=== PATIENT | male | born 1975 | race Caucasian/White ===

== ENCOUNTER 2018-08-01 15:07 | Inpatient (IN) | payer OTHER ==
[~2018-08-01] VITALS: Ht 180.3 cm; Wt 86.6 kg
[2018-08-01] MEDS ORDERED: SOD CHLORIDE 0.9% 1,000 ML IV STA (17:36)
[2018-08-01] MEDS ORDERED: NITROGLYCERIN 2% 1 GM OINT PKT TD STA (17:36)
[2018-08-01] MEDS ORDERED: NITROGLYCERIN (SL) 0.4 MG TAB SL PRN ×2 (18:00→19:30)
[2018-08-01] MEDS ORDERED: IOHEXOL 100 ML ONE (19:05)
[2018-08-01] MEDS ORDERED: SOD CHLORIDE 0.9% 100 ML ONE (19:05)
[2018-08-01] MEDS ORDERED: SOD CHLORIDE 0.45% 1,000 ML IV SCH (19:23)
[2018-08-01] MEDS ORDERED: ACETAMINOPHEN 325 MG TAB PO PRN ×2 (19:30)
[2018-08-01] MEDS ORDERED: morphine 4 MG/ML VIAL IV PRN (19:30)
[2018-08-01] MEDS ORDERED: hydrALAzine 20 MG INJ IV PRN (19:30)
[2018-08-01] MEDS ORDERED: LORAZEPAM 2 MG INJ IV PRN (19:30)
[2018-08-01] MEDS ORDERED: MAGNESIUM HYDROXIDE 30ML CUP PO PRN (19:30)
[2018-08-01] MEDS ORDERED: ENOXAPARIN 80 MG/0.8 ML SYG SC SCH ×2 (19:30→20:00)
[2018-08-01] MEDS ORDERED: NACL 0.9% 3 ML SYG IV SCH (19:30)
[2018-08-01] MEDS ORDERED: HYDROCODONE/APAP (5/325) TAB PO PRN (19:30)
[2018-08-01] MEDS ORDERED: ALBUTEROL/IPRATROPIUM (NEB) 3 ML AMP HHN PRN (19:30)
[2018-08-01] MEDS ORDERED: ONDANSETRON 4 MG INJ IV PRN ×2 (19:30)
[2018-08-01] MEDS ORDERED: DOCUSATE SODIUM 100 MG CAP PO PRN (19:30)
--- NOTE | 2018-08-01 19:35 | ERD ---
ER Documentation Chief Complaint Chief Complaint chest pain htn HPI Patient is a 42-year-old male who smokes and is a family history of cardiac disease who presents with chest pain. The patient was brought in by ambulance. He said the pain is gone now but when it was there it was sharp and heavy in the midsternal part of his chest. He had sweating and left arm numbness at that time as well. He was at work and it was sudden in onset. He took aspirin at work. He says "now I just do not feel right". He said that it lasted at least 30 minutes. Upon review of old medical records this is the patient's first visit to the emergency department. His primary doctor is Dr. Naik. ROS All systems reviewed and are negative except as per history of present illness. Medications Home Meds No Active Prescriptions or Reported Meds Allergies Allergies: Coded Allergies: No Known Allergy (Unverified , 08/01/18) PMhx/Soc Medical and Surgical Hx: pt denies Medical Hx, pt denies Surgical Hx Hx Alcohol Use: Yes Hx Substance Use: Yes Hx Tobacco Use: Yes Smoking Status: Current every day smoker FmHx Family History: coronary disease Physical Exam Vitals Vital Signs Date Temp Pulse Resp B/P (MAP) Pulse Ox O2 O2 Flow FiO2 Time Delivery Rate 08/01/18 91 16 146/98 99 Room Air 18:16 (114) 08/01/18 98.5 120 18 161/90 98 15:14 (113) Physical Exam Const: No acute distress Head: Atraumatic Eyes: Normal Conjunctiva ENT: Normal External Ears, Nose and Mouth. Neck: Full range of motion. No meningismus. Resp: Clear to auscultation bilaterally Cardio: Regular rate and rhythm, no murmurs Abd: Soft, non tender, non distended. Normal bowel sounds Skin: No petechiae or rashes Back: No midline or flank tenderness Ext: No cyanosis, or edema Neur: Awake and alert Psych: Normal Mood and Affect Result Diagram: 08/01/18 1741 08/01/18 1741 Results 24 hrs Laboratory Tests Test 08/01/18 17:41 White Blood Count 11.0 10^3/ul Red Blood Count 4.66 10^6/ul Hemoglobin 14.8 g/dl Hematocrit 42.8 % Mean Corpuscular Volume 91.8 fl Mean Corpuscular Hemoglobin 31.8 pg Mean Corpuscular Hemoglobin Concent 34.6 g/dl Red Cell Distribution Width 12.2 % Platelet Count 206 10^3/UL Mean Platelet Volume 9.4 fl Immature Granulocytes % 0.800 % Neutrophils % 73.9 % Lymphocytes % 18.8 % Monocytes % 5.9 % Eosinophils % 0.1 % Basophils % 0.5 % Nucleated Red Blood Cells % 0.0 /100WBC Immature Granulocytes # 0.090 10^3/ul Neutrophils # 8.2 10^3/ul Lymphocytes # 2.1 10^3/ul Monocytes # 0.7 10^3/ul Eosinophils # 0.0 10^3/ul Basophils # 0.1 10^3/ul Nucleated Red Blood Cells # 0.0 10^3/ul Sodium Level 141 mmol/L Potassium Level 4.1 mmol/L Chloride Level 103 mmol/L Carbon Dioxide Level 22 mmol/L Anion Gap 16 Blood Urea Nitrogen 8 mg/dl Creatinine 0.69 mg/dl Est Glomerular Filtrat Rate mL/min > 60 mL/min Glucose Level 92 mg/dl Calcium Level 10.1 mg/dl Troponin I 0.658 ng/ml Current Medications Medications Dose Sig/Sherrie Start Time Status Last (Trade) Ordered Route PRN Stop Time Admin Dose Reason Admin 1 inch ONCE STAT 08/01/18 DC 08/01/18 Nitroglycerin TD 17:36 17:52 08/01/18 17:38 (Nitroglyceri n 2% Oint) 1 tab Q5M UP TO 3 08/01/18 Nitroglycerin DOSES PRN 18:00 SL .CHEST (Nitroglyceri PAIN n (Sl Tab) 0.4 Mg) Sodium 1,000 ml @ Q1H STAT 08/01/18 DC 08/01/18 Chloride 1,000 mls/hr IV 17:36 17:49 08/01/18 18:35 IV Flush 10 ml STK-MED 08/01/18 DC 08/01/18 (NS 10 ml) ONCE .ROUTE 19:05 19:18 08/01/18 19:06 Sodium 100 ml @ ud STK-MED 08/01/18 DC 08/01/18 Chloride ONCE .ROUTE 19:05 19:18 08/01/18 19:06 Iohexol 100 ml @ STK-MED 08/01/18 DC 08/01/18 ONCE .ROUTE 19:05 19:18 08/01/18 19:06 Ondansetron 4 mg ER BRIDGE 08/01/18 HCl (Zofran PRN IV 19:30 Inj) NAUSEA/VOMITI 08/02/18 19:29 NG 650 mg ER BRIDGE 08/01/18 Acetaminophen PRN PO 19:30 (Tylenol .MILD PAIN 08/02/18 19:29 Tab) 1-3 OR TEMP IV Flush 3 ml PER 08/01/18 (NS 3 ml) PROTOCOL IV 19:30 Ondansetron 4 mg Q6H PRN 08/01/18 HCl (Zofran IV 19:30 Inj) NAUSEA/VOMITI NG 650 mg Q6H PRN 08/01/18 Acetaminophen PO .PAIN 1-3 19:30 (Tylenol OR TEMP Tab) 1 tab Q6H PRN 08/01/18 Acetaminophen PO .MOD PAIN 19:30 / 4-6 Hydrocodone Bitart ([place] (5/325)) Morphine 2 mg Q4H PRN 08/01/18 Sulfate IV .SEVERE 19:30 (morphine) PAIN 7-10 Docusate 100 mg Q12H PRN 08/01/18 Sodium PO 19:30 (Colace) .CONSTIPATION Magnesium 30 ml DAILY PRN 08/01/18 Hydroxide PO 19:30 (Milk Of Mag) .CONSTIPATION Sodium 1,000 ml @ [id number] IV 08/01/18 Chloride 75 mls/hr 19:23 Lorazepam 0.5 mg Q6H PRN 08/01/18 (Ativan) IV ANXIETY 19:30 Albuterol/ 3 ml Q4H RESP 08/01/18 Ipratropium THERAPY PRN 19:30 (Duoneb) HHN SHORTNESS OF BREATH Hydralazine 10 mg Q6H PRN 08/01/18 HCl IV ELEVATED 19:30 (Apresoline) BLOOD PRESSURE 1 tab Q5M PRN 08/01/18 Nitroglycerin SL ANGINA 19:30 (Nitroglyceri n (Sl Tab) 0.4 Mg) Aspirin 325 mg DAILY PO 08/02/18 UNV (Ecotrin) 09:00 80 mg HS PO 08/01/18 UNV Atorvastatin 21:00 Calcium (Lipitor) Enoxaparin 70 mg Q12 SC 08/01/18 Sodium 19:30 (Lovenox) Procedures/MDM EKG #1 read by me: Rate/Rhythm: Sinus tachycardia rate of 117 Intervals: Normal Impression: Sinus tachycardia without ischemia EKG #2 read by me: Rate/Rhythm: Sinus tachycardia at a rate of 102 Intervals: Normal Impression: Sinus tachycardia without ischemia Chest x-ray read by radiology. CT scan of the chest negative for pulmonary embolism or dissection per radiology. Smoking Cessation Therapy: Pt. was lectured for greater than 3 minutes on the health risks of continued smoking and the benefits of cessation. Patient is a 42-year-old smoker with a family history of cardiac disease presents with chest pain. He was found to have a positive troponin but EKGs did not show STEMI. I believe the patient has an NSTEMI. CT scan was negative for pulmonary embolism or dissection. I doubt pneumonia or pneumothorax. The patie nt will be admitted to the care of Dr. Diaz. He took his own aspirin. He was given nitroglycerin and Lovenox. Departure Diagnosis: Primary Impression: NSTEMI (non-ST elevated myocardial infarction) Additional Impression: Chest pain Chest pain type: unspecified Qualified Codes: R07.9 - Chest pain, unspecified Condition: BELIA Celestin MD Aug 01, 2018 19:35
--- NOTE | 2018-08-01 20:42 | CONS ---
Assessment/Plan Assessment/Plan Hospital Course (Demo Recall) 1. NSTEMI 2. HTN 3. abnormal trop due to above 4. r/o dyslipidemia 5. SMOKER 6. COPD 7 SINUS TACHY REC: Patient has already been started on aspirin. Beta-jacob was added. Statin was already initiated Lovenox was given in the emergency room. Echocardiogram and serial cardiac enzyme has been already ordered. Nitroglycerin was added as well Plan for left heart catheterization coronary angiogram possible percutaneous coronary intervention tomorrow. So far I have been given 5:00 spot as early as available. Risks benefits alternative procedure discussed with the patient improves and his in detail. Risks including but not limited to risk of infection vascular complication bleeding complications WA stroke arrhythmia renal failure etc. discussed with the patient. Patient was consented the procedure. We will keep patient n.p.o. after 8:30 AM in anticipation for coronary a ngiography in the afternoon Closely with monitor on telemetry Thank you for his referral will continue to follow along with you. ROMEO LION MD [facility] Consultation Date/Type/Reason Admit Date/Time Date of Consultation: Aug 01, 2018 Type of Consult Cardiology Reason for Consultation Positive troponin Requesting Provider: HEATHER BENSON Date/Time of Note DATE: 08/01/18 TIME: 20:36 Hx of Present Illness Interventional cardiology consultation note Chief complaint: Chest pain Reason for consult: Abnormal troponin History of present illness: Thank you for this referral. History was obtained from the patient and his . From discussion multiple physicians including Dr. BENSON, and ER physician and staff This is a pleasant 42-year-old gentleman with no known previous past medical history but cardiac risk factors including smoking and strong family history of coronary artery disease who presents emergency above complaint. Patient stated he was walking to his work when he had sudden onset of severe anterior chest pain and pressure. Pain lasted about 30 minutes. Went to work and was advised to call paramedics were brought into the emergency room. Emergency room first troponin is slightly elevated consistent with non-ST elevation myocardial infarction. Vitamin patient is emergency room his pain has completely resolved now. Allergies: No known drug allergies Medications At Home none Family history: His father and his uncle had WA at young age. In fact his uncle apparently of WA in his 40s Social history: Actively smokes. Denies any drug or heavy alcohol use to me. Is . Past medical history: None known Review of system: Patient denies all others except for above-mentioned Past Medical History Home Meds No Active Prescriptions or Reported Meds Medications Current Medications Nitroglycerin (Nitroglycerin (Sl Tab) 0.4 Mg) 1 tab Q5M UP TO 3 DOSES PRN SL .CHEST PAIN; Start 08/01/18 at 18:00 Ondansetron HCl (Zofran Inj) 4 mg ER BRIDGE PRN IV NAUSEA/VOMITING; Start 08/01/18 at 19:30; Stop 08/02/18 at 19:29 Acetaminophen (Tylenol Tab) 650 mg ER BRIDGE PRN PO .MILD PAIN 1-3 OR TEMP; Start 08/01/18 at 19:30; Stop 08/02/18 at 19:29 IV Flush (NS 3 ml) 3 ml PER PROTOCOL IV ; Start 08/01/18 at 19:30 Ondansetron HCl (Zofran Inj) 4 mg Q6H PRN IV NAUSEA/VOMITING; Start 08/01/18 at 19:30 Acetaminophen (Tylenol Tab) 650 mg Q6H PRN PO .PAIN 1-3 OR TEMP; Start 08/01/18 at 19:30 Acetaminophen/ Hydrocodone Bitart ([place] (5/325)) 1 tab Q6H PRN PO .MOD PAIN 4- 6; Start 08/01/18 at 19:30 Morphine Sulfate (morphine) 2 mg Q4H PRN IV .SEVERE PAIN 7-10; Start 08/01/18 at 19:30 Docusate Sodium (Colace) 100 mg Q12H PRN PO .CONSTIPATION; Start 08/01/18 at 19:30 Magnesium Hydroxide (Milk Of Mag) 30 ml DAILY PRN PO .CONSTIPATION; Start 08/01/18 at 19:30 Sodium Chloride 1,000 ml @ 75 mls/hr [id number] IV ; Start 08/01/18 at 19:23 Lorazepam (Ativan) 0.5 mg Q6H PRN IV ANXIETY; Start 08/01/18 at 19:30 Albuterol/ Ipratropium (Duoneb) 3 ml Q4H RESP THERAPY PRN HHN SHORTNESS OF BREATH; Start 08/01/18 at 19:30 Hydralazine HCl (Apresoline) 10 mg Q6H PRN IV ELEVATED BLOOD PRESSURE; Start 08/01/18 at 19:30 Nitroglycerin (Nitroglycerin (Sl Tab) 0.4 Mg) 1 tab Q5M PRN SL ANGINA; Start 08/01/18 at 19:30 Aspirin (Ecotrin) 325 mg DAILY PO ; Start 08/02/18 at 09:00 Atorvastatin Calcium (Lipitor) 80 mg HS PO ; Start 08/01/18 at 21:00; Status UNV Enoxaparin Sodium (Lovenox) 70 mg Q12 SC ; Start 08/01/18 at 19:30 Enoxaparin Sodium (Lovenox) 70 mg ONCE SC ; Start 08/01/18 at 20:00 Allergies: Coded Allergies: No Known Allergy (Unverified , 08/01/18) Social History Smoking Status: Current every day smoker Exam/Review of Systems Vital Signs Vitals Vital Signs Date Temp Pulse Resp B/P (MAP) Pulse Ox O2 O2 Flow FiO2 Time Delivery Rate 08/01/18 98.5 100 16 155/104 99 Room Air 20:16 (121) Exam Exam General: no acute distress HEENT: NC/AT. pupils are equal. round. NECK: NO JVD. no stridor. CV: Tachycardic. systolic murmur; no gallop or rubs. PULM: no wheezing or rhonchi. GI: SOFT, NT, ND, no rebound or guarding Extremity: trace B/L LE edema. no clubbing. neuro: awake and alert, OX3. Psych: calm and pleasant rectal: deferred : normal EKG was personally reviewed shows tachycardia. Poor R wave progression Chest x-ray showed no acute cardiopulmonary disease CT pulmonary angiogram done in the emergency room shows: No CT evidence for pulmonary embolus or aortic dissection. Emphysema is present with mild bilateral subpleural scarring. No lung nodule or mass. Bilateral airways wall thickening is seen which could represent airways inflammation which may be chronic. Labs Result Diagram: 08/01/18 1741 08/01/18 1741 Results 24hrs Laboratory Tests Test 08/01/18 17:41 White Blood Count 11.0 H Red Blood Count 4.66 L Hemoglobin 14.8 Hematocrit 42.8 Mean Corpuscular Volume 91.8 Mean Corpuscular Hemoglobin 31.8 Mean Corpuscular Hemoglobin Concent 34.6 Red Cell Distribution Width 12.2 Platelet Count 206 Mean Platelet Volume 9.4 Immature Granulocytes % 0.800 H Neutrophils % 73.9 Lymphocytes % 18.8 Monocytes % 5.9 Eosinophils % 0.1 Basophils % 0.5 Nucleated Red Blood Cells % 0.0 Immature Granulocytes # 0.090 H Neutrophils # 8.2 H Lymphocytes # 2.1 Monocytes # 0.7 Eosinophils # 0.0 Basophils # 0.1 Nucleated Red Blood Cells # 0.0 Sodium Level 141 Potassium Level 4.1 Chloride Level 103 Carbon Dioxide Level 22 Anion Gap 16 H Blood Urea Nitrogen 8 Creatinine 0.69 Est Glomerular Filtrat Rate mL/min > 60 Glucose Level 92 Calcium Level 10.1 Creatine Kinase 89 Creatinine Kinase MB (Mass) 1.57 Troponin I Pending Free Thyroxine 1.08 Medications Medications Current Medications Nitroglycerin (Nitroglycerin (Sl Tab) 0.4 Mg) 1 tab Q5M UP TO 3 DOSES PRN SL .CHEST PAIN; Start 08/01/18 at 18:00 Ondansetron HCl (Zofran Inj) 4 mg ER BRIDGE PRN IV NAUSEA/VOMITING; Start 08/01/18 at 19:30; Stop 08/02/18 at 19:29 Acetaminophen (Tylenol Tab) 650 mg ER BRIDGE PRN PO .MILD PAIN 1-3 OR TEMP; Start 08/01/18 at 19:30; Stop 08/02/18 at 19:29 IV Flush (NS 3 ml) 3 ml PER PROTOCOL IV ; Start 08/01/18 at 19:30 Ondansetron HCl (Zofran Inj) 4 mg Q6H PRN IV NAUSEA/VOMITING; Start 08/01/18 at 19:30 Acetaminophen (Tylenol Tab) 650 mg Q6H PRN PO .PAIN 1-3 OR TEMP; Start 08/01/18 at 19:30 Acetaminophen/ Hydrocodone Bitart ([place] (5/325)) 1 tab Q6H PRN PO .MOD PAIN 4- 6; Start 08/01/18 at 19:30 Morphine Sulfate (morphine) 2 mg Q4H PRN IV .SEVERE PAIN 7-10; Start 08/01/18 at 19:30 Docusate Sodium (Colace) 100 mg Q12H PRN PO .CONSTIPATION; Start 08/01/18 at 19:30 Magnesium Hydroxide (Milk Of Mag) 30 ml DAILY PRN PO .CONSTIPATION; Start 08/01/18 at 19:30 Sodium Chloride 1,000 ml @ 75 mls/hr [id number] IV ; Start 08/01/18 at 19:23 Lorazepam (Ativan) 0.5 mg Q6H PRN IV ANXIETY; Start 08/01/18 at 19:30 Albuterol/ Ipratropium (Duoneb) 3 ml Q4H RESP THERAPY PRN HHN SHORTNESS OF BREATH; Start 08/01/18 at 19:30 Hydralazine HCl (Apresoline) 10 mg Q6H PRN IV ELEVATED BLOOD PRESSURE; Start 08/01/18 at 19:30 Nitroglycerin (Nitroglycerin (Sl Tab) 0.4 Mg) 1 tab Q5M PRN SL ANGINA; Start 08/01/18 at 19:30 Aspirin (Ecotrin) 325 mg DAILY PO ; Start 08/02/18 at 09:00 Atorvastatin Calcium (Lipitor) 80 mg HS PO ; Start 08/01/18 at 21:00; Status UNV Enoxaparin Sodium (Lovenox) 70 mg Q12 SC ; Start 08/01/18 at 19:30 Enoxaparin Sodium (Lovenox) 70 mg ONCE SC ; Start 08/01/18 at 20:00 ROMEO LION MD Aug 01, 2018 20:42
--- NOTE | 2018-08-01 23:57 | HP ---
Date/Time of Note Date/Time of Note DATE: 08/01/18 TIME: 23:57 Assessment/Plan VTE Prophylaxis Pharmacological prophylaxis: LMWH Lines/Catheters IV Catheter Type (from Nrs): Saline Lock Assessment/Plan Assessment/Plan 1. NSTEMI -Continue telemetry monitoring -Supplemental oxygen, aspirin, statin, beta-jacob. As needed nitro -Trend troponin -Treatment dose Lovenox -Seen by cardiology. Plan for left heart cath in a.m. 2. Emphysema/COPD, as seen on CTPA: No sign of acute exacerbation -Patient with a history of smoking -Smoking cessation -Bronchodilators and steroid as needed 3. Alcohol abuse: Patient drinks 12 cans of beer almost every day -He will be placed on banana bag -As needed Ativan for withdrawal symptoms Result Diagram: 08/01/18 1741 08/01/18 1741 Results 24hrs Laboratory Tests Test 08/01/18 17:41 White Blood Count 11.0 H Red Blood Count 4.66 L Hemoglobin 14.8 Hematocrit 42.8 Mean Corpuscular Volume 91.8 Mean Corpuscular Hemoglobin 31.8 Mean Corpuscular Hemoglobin Concent 34.6 Red Cell Distribution Width 12.2 Platelet Count 206 Mean Platelet Volume 9.4 Immature Granulocytes % 0.800 H Neutrophils % 73.9 Lymphocytes % 18.8 Monocytes % 5.9 Eosinophils % 0.1 Basophils % 0.5 Nucleated Red Blood Cells % 0.0 Immature Granulocytes # 0.090 H Neutrophils # 8.2 H Lymphocytes # 2.1 Monocytes # 0.7 Eosinophils # 0.0 Basophils # 0.1 Nucleated Red Blood Cells # 0.0 Sodium Level 141 Potassium Level 4.1 Chloride Level 103 Carbon Dioxide Level 22 Anion Gap 16 H Blood Urea Nitrogen 8 Creatinine 0.69 Est Glomerular Filtrat Rate mL/min > 60 Glucose Level 92 Calcium Level 10.1 Creatine Kinase 89 Creatinine Kinase MB (Mass) 1.57 Troponin I 0.658 *H Free Thyroxine 1.08 HPI/ROS Admit Date/Time Admit Date/Time Hx of Present Illness This is a 6-year-old male with smoking history as well as alcohol abuse who presented to ER complaining of chest pain. Pain started a few hours prior to arrival to the ER while he was sitting. It substernal, radiating upper back and left upper extremity with associated numbness of his left hand. Pain lasted about 30 minutes. Not exertional. Denied associated shortness of breath, nausea/vomiting or diaphoresis. He has a father who had heart disease, does not know at what age. His paternal uncle of heart disease at the age of 36. When he presented to ER, first troponin was elevated at 0.658. EKG without ST-T wave abnormalities. Chest x-ray without acute findings. CTPA shows Emphysema is present with mild bilateral subpleural scarring and bilateral airways wall thickening is seen which could represent airways inflammation which may be chronic. No PE, lung nodule or mass PMH/Family/Social Past Medical History Medical History: no pertinent history Medications Current Medications IV Flush (NS 3 ml) 3 ml PER PROTOCOL IV ; Start 08/01/18 at 19:30 Ondansetron HCl (Zofran Inj) 4 mg Q6H PRN IV NAUSEA/VOMITING; Start 08/01/18 at 19:30 Acetaminophen (Tylenol Tab) 650 mg Q6H PRN PO .PAIN 1-3 OR TEMP; Start 08/01/18 at 19:30 Acetaminophen/ Hydrocodone Bitart ([place] (5/325)) 1 tab Q6H PRN PO .MOD PAIN 4- 6; Start 08/01/18 at 19:30 Morphine Sulfate (morphine) 2 mg Q4H PRN IV .SEVERE PAIN 7-10; Start 08/01/18 at 19:30 Docusate Sodium (Colace) 100 mg Q12H PRN PO .CONSTIPATION; Start 08/01/18 at 19:30 Magnesium Hydroxide (Milk Of Mag) 30 ml DAILY PRN PO .CONSTIPATION; Start 08/01/18 at 19:30 Lorazepam (Ativan) 0.5 mg Q6H PRN IV ANXIETY; Start 08/01/18 at 19:30 Albuterol/ Ipratropium (Duoneb) 3 ml Q4H RESP THERAPY PRN HHN SHORTNESS OF BREATH; Start 08/01/18 at 19:30 Hydralazine HCl (Apresoline) 10 mg Q6H PRN IV ELEVATED BLOOD PRESSURE; Start 08/01/18 at 19:30 Nitroglycerin (Nitroglycerin (Sl Tab) 0.4 Mg) 1 tab Q5M PRN SL ANGINA; Start 08/01/18 at 19:30 Aspirin (Ecotrin) 325 mg DAILY PO ; Start 08/02/18 at 09:00 Atorvastatin Calcium (Lipitor) 80 mg HS PO ; Start 08/01/18 at 21:00 Enoxaparin Sodium (Lovenox) 70 mg ONCE SC ; Start 08/01/18 at 20:00 Enoxaparin Sodium (Lovenox) 40 mg Q12 SC ; Start 08/02/18 at 09:00 Metoprolol Tartrate (Lopressor) 25 mg Q6 PO ; Start 08/01/18 at 21:00 Isosorbide Dinitrate (Isordil) 10 mg TID PO ; Start 08/01/18 at 21:00 Dextrose/Sodium Chloride 1,000 ml @ 70 mls/hr [id number] IV ; Start 08/01/18 at 21:00; Stop 08/02/18 at 17:00 Coded Allergies: No Known Allergy (Unverified , 08/01/18) Past Surgical History Past Surgical Hx: other (See under history) Family History Significant Family History: other (Father with heart disease. Paternal uncle of heart disease at age of 36) Social History Alcohol Use: heavy Smoking Status: Current every day smoker Drug Use: none Exam/Review of Systems Vital Signs Vitals Vital Signs Date Temp Pulse Resp B/P (MAP) Pulse Ox O2 O2 Flow FiO2 Time Delivery Rate 08/01/18 100 16 137/86 98 Room Air 23:35 (103) 08/01/18 98.5 20:16 Exam Constitutional: alert, oriented, well developed Head: normocephalic, atraumatic Eyes: EOMI, PERRL Respiratory: clear to auscultation, normal air movement Cardiovascular: regular rate and rhythm, nl pulses Gastrointestinal: soft Extremities: normal pulses KEV MCDONOUGH MD Aug 01, 2018 23:57
[2018-08-02] VITALS (26 sets, daily range): BP systolic 121–156; BP diastolic 63–96; PULSE 64–98; RESP 16–27; Ht 180.3 cm; Wt 86.6 kg
[2018-08-02] MEDS: ATORVASTATIN 80 MG TAB PO SCH ×2 (00:50→21:53)
[2018-08-02] MEDS: METOPROLOL 25 MG TAB PO SCH ×4 (00:51→12:12)
[2018-08-02] MEDS: ISOSORBIDE DINITRATE 10 MG TAB PO SCH ×4 (00:51→21:56)
[2018-08-02] MEDS: DEXTROSE 5%-0.9% NACL 1,000 ML IV SCH ×2 (00:52→10:38)
--- NOTE | 2018-08-02 01:47 | NUR ---
Patient Admitted Pt arrived to 5W Tele from ED. Pt A&O x 4. VSS, on 2L NC. Tele monitor on, patient is SR/ST. Pt denies pain; no s/s of distress, resting in bed comfortably. Skin intact; does not want pictures at this time. Fall precautions initiated. SCDs applied. Patient and family oriented to room, call light within reach, hourly rounding standards explained; pt instructed to call for assistance as needed. Pt clean and dry; all needs and concerns attended to. Admitting orders input by Dr. Jeronimo; called Dr. Diaz and informed him of the patient's arrival. Plan for L heart cath today; NPO after 8:30a. Will continue to monitor and assess.
[2018-08-02] MEDS: CHLORDIAZEPOXIDE 25 MG CAP PO SCH ×4 (06:00→21:00)
[2018-08-02] MEDS ORDERED: LORAZEPAM 2 MG INJ IV PRN (06:00)
[2018-08-02] MEDS: MULTIVITAMINS 10 ML, FOLIC ACID 1 MG in SOD CHLORIDE 0.9% 1,000 ML IVPB SCH (08:52)
[2018-08-02] MEDS: NICOTINE (21 MG/24 HR) PATCH TRANSDERM SCH ×2 (08:52→08:55)
[2018-08-02] MEDS ORDERED: ENOXAPARIN 40 MG/0.4 ML SYG SC SCH (09:00)
[2018-08-02] MEDS ORDERED: ASPIRIN (EC) 325 MG TAB PO SCH (09:00)
--- NOTE | 2018-08-02 11:10 | PN ---
Date/Time of Note Date/Time of Note DATE: 08/02/18 TIME: 11:03 Assessment/Plan VTE Prophylaxis Risk score (from [facility])>0 risk: 1 SCD applied (from [facility]): No SCD contraindicated: other Pharmacological prophylaxis: LMWH Lines/Catheters IV Catheter Type (from [facility]): Peripheral IV Urinary Cath still in place: No Assessment/Plan Hospital Course S: Patient seen by cardiology team yesterday, no acute events overnight. Awaiting left heart catheter later today. O: VS - see below PE: General: Lying in bed, no acute distress HEENT: NC/AT. pupils are equal. round. NECK: supple CV: S1, S2, systolic murmur; no gallop or rubs. PULM: no wheezing or rhonchi. GI: SOFT, NT, ND, no rebound or guarding Extremity: trace B/L LE edema. no clubbing. neuro: no focal deficits Assessment/Plan: 42 M who presents with: 1. NSTEMI -seen by cardiology team, found with elevated troponins since admission. -Continue telemetry monitoring -Supplemental oxygen, aspirin, statin, beta-jacob. As needed nitro -For now continue to trend troponin -For now continue treatment dose Lovenox -Seen by cardiology. Plan for left heart cath later today. 2. Emphysema/COPD, as seen on CTPA: No sign of acute exacerbation-Patient with a history of smoking -Counseled on smoking cessation -Bronchodilators and steroid as needed 3. Alcohol abuse: Patient drinks 12 cans of beer almost every day -Continue banana bag -As needed Ativan for withdrawal symptoms Result Diagram: 08/02/18 0638 08/02/1838 Results 24hrs Laboratory Tests Test 08/01/18 17:41 08/02/18 00:52 08/02/18 06:38 White Blood Count 11.0 H 8.1 # Red Blood Count 4.66 L 4.01 L Hemoglobin 14.8 12.9 L Hematocrit 42.8 37.9 L Mean Corpuscular Volume 91.8 94.5 Mean Corpuscular Hemoglobin 31.8 32.2 Mean Corpuscular Hemoglobin Concent 34.6 34.0 Red Cell Distribution Width 12.2 12.4 Platelet Count 206 163 # Mean Platelet Volume 9.4 9.5 Immature Granulocytes % 0.800 H 0.700 H Neutrophils % 73.9 65.6 Lymphocytes % 18.8 24.9 Monocytes % 5.9 7.6 Eosinophils % 0.1 0.6 Basophils % 0.5 0.6 Nucleated Red Blood Cells % 0.0 0.0 Immature Granulocytes # 0.090 H 0.060 H Neutrophils # 8.2 H 5.3 Lymphocytes # 2.1 2.0 Monocytes # 0.7 0.6 Eosinophils # 0.0 0.1 Basophils # 0.1 0.1 Nucleated Red Blood Cells # 0.0 0.0 Sodium Level 141 140 Potassium Level 4.1 4.1 Chloride Level 103 101 Carbon Dioxide Level 22 26 Anion Gap 16 H 13 Blood Urea Nitrogen 8 10 Creatinine 0.69 0.73 Est Glomerular Filtrat Rate mL/min > 60 > 60 Glucose Level 92 104 Calcium Level 10.1 9.1 Creatine Kinase 89 77 64 Creatinine Kinase MB (Mass) 1.57 1.64 1.22 Troponin I 0.658 *H 0.512 *H 0.217 *H Free Thyroxine 1.08 Creatine Kinase Index 2.1 1.9 Hemoglobin A1c 5.3 Phosphorus Level 5.4 H Magnesium Level 1.7 Triglycerides Level 135 Cholesterol Level 176 LDL Cholesterol, Calculated 91 HDL Cholesterol 58 Cholesterol/HDL Ratio 3.0 Thyroid Stimulating Hormone (TSH) 1.820 Exam/Review of Systems Exam Vitals Vital Signs Date Temp Pulse Resp B/P (MAP) Pulse Ox O2 O2 Flow FiO2 Time Delivery Rate 08/02/18 71 08:30 08/02/18 Nasal 2.0 07:56 Cannula 08/02/18 98.0 18 127/71 96 07:29 (89) Intake and Output 08/01/18 08/01/18 08/02/18 1515:00 23:00 07:00 IntakeIntake Total 500 ml BalanceBalance 500 ml Results Results 24hrs Laboratory Tests Test 08/01/18 17:41 08/02/18 00:52 08/02/18 06:38 White Blood Count 11.0 H 8.1 # Red Blood Count 4.66 L 4.01 L Hemoglobin 14.8 12.9 L Hematocrit 42.8 37.9 L Mean Corpuscular Volume 91.8 94.5 Mean Corpuscular Hemoglobin 31.8 32.2 Mean Corpuscular Hemoglobin Concent 34.6 34.0 Red Cell Distribution Width 12.2 12.4 Platelet Count 206 163 # Mean Platelet Volume 9.4 9.5 Immature Granulocytes % 0.800 H 0.700 H Neutrophils % 73.9 65.6 Lymphocytes % 18.8 24.9 Monocytes % 5.9 7.6 Eosinophils % 0.1 0.6 Basophils % 0.5 0.6 Nucleated Red Blood Cells % 0.0 0.0 Immature Granulocytes # 0.090 H 0.060 H Neutrophils # 8.2 H 5.3 Lymphocytes # 2.1 2.0 Monocytes # 0.7 0.6 Eosinophils # 0.0 0.1 Basophils # 0.1 0.1 Nucleated Red Blood Cells # 0.0 0.0 Sodium Level 141 140 Potassium Level 4.1 4.1 Chloride Level 103 101 Carbon Dioxide Level 22 26 Anion Gap 16 H 13 Blood Urea Nitrogen 8 10 Creatinine 0.69 0.73 Est Glomerular Filtrat Rate mL/min > 60 > 60 Glucose Level 92 104 Calcium Level 10.1 9.1 Creatine Kinase 89 77 64 Creatinine Kinase MB (Mass) 1.57 1.64 1.22 Troponin I 0.658 *H 0.512 *H 0.217 *H Free Thyroxine 1.08 Creatine Kinase Index 2.1 1.9 Hemoglobin A1c 5.3 Phosphorus Level 5.4 H Magnesium Level 1.7 Triglycerides Level 135 Cholesterol Level 176 LDL Cholesterol, Calculated 91 HDL Cholesterol 58 Cholesterol/HDL Ratio 3.0 Thyroid Stimulating Hormone (TSH) 1.820 Medications Medication Current Medications IV Flush (NS 3 ml) 3 ml PER PROTOCOL IV ; Start 08/01/18 at 19:30 Ondansetron HCl (Zofran Inj) 4 mg Q6H PRN IV NAUSEA/VOMITING; Start 08/01/18 at 19:30 Acetaminophen (Tylenol Tab) 650 mg Q6H PRN PO .PAIN 1-3 OR TEMP; Start 08/01/18 at 19:30 Acetaminophen/ Hydrocodone Bitart ([place] (5/325)) 1 tab Q6H PRN PO .MOD PAIN 4- 6; Start 08/01/18 at 19:30 Morphine Sulfate (morphine) 2 mg Q4H PRN IV .SEVERE PAIN 7-10; Start 08/01/18 at 19:30 Docusate Sodium (Colace) 100 mg Q12H PRN PO .CONSTIPATION; Start 08/01/18 at 19:30 Magnesium Hydroxide (Milk Of Mag) 30 ml DAILY PRN PO .CONSTIPATION; Start 08/01/18 at 19:30 Albuterol/ Ipratropium (Duoneb) 3 ml Q4H RESP THERAPY PRN HHN SHORTNESS OF BREATH; Start 08/01/18 at 19:30 Hydralazine HCl (Apresoline) 10 mg Q6H PRN IV ELEVATED BLOOD PRESSURE; Start 08/01/18 at 19:30 Nitroglycerin (Nitroglycerin (Sl Tab) 0.4 Mg) 1 tab Q5M PRN SL ANGINA; Start 08/01/18 at 19:30 Aspirin (Ecotrin) 325 mg DAILY PO Last administered on 08/02/18at 08:53; Admin Dose 325 MG; Start 08/02/18 at 09:00 Atorvastatin Calcium (Lipitor) 80 mg HS PO Last administered on 08/02/18at 00:50; Admin Dose 80 MG; Start 08/01/18 at 21:00 Enoxaparin Sodium (Lovenox) 70 mg ONCE SC Last administered on 08/02/18at 01:02; Admin Dose 70 MG; Start 08/01/18 at 20:00 Enoxaparin Sodium (Lovenox) 40 mg Q12 SC ; Start 08/02/18 at 09:00 Metoprolol Tartrate (Lopressor) 25 mg Q6 PO Last administered on 08/02/18at 05:45; Admin Dose 25 MG; Start 08/01/18 at 21:00 Isosorbide Dinitrate (Isordil) 10 mg TID PO Last administered on 08/02/18at 08:54; Admin Dose 10 MG; Start 08/01/18 at 21:00 Dextrose/Sodium Chloride 1,000 ml @ 70 mls/hr [id number] IV Last administered on 08/02/18at 00:52; Admin Dose 70 MLS/HR; Start 08/01/18 at 21:00; Stop 08/02/18 at 17:00 Nicotine (Nicoderm 21 Mg/ 24hr) 1 patch DAILY TRANSDERM ; Start 08/02/18 at 09:00 Multivitamins 10 ml/Folic Acid 1 mg/Sodium Chloride 1,010.2 ml @ 125 mls/ hr DAILY@09 IVPB Last administered on 08/02/18at 08:52; Admin Dose 125 MLS/HR; Start 08/02/18 at 09:00; Stop 08/04/18 at 23:00 Lorazepam (Ativan) 2 mg Q1H PRN IV Alcohol withdrawal; Start 08/02/18 at 06:00 Chlordiazepoxide (Librium) 75 mg TID PO ; Start 08/02/18 at 06:00 HEATHER BENSON Aug 02, 2018 11:10
--- NOTE | 2018-08-02 13:33 | NUR ---
SW: AHCD & INITIAL PSYCHOSOCIAL ASSESSMENT SW met with this 42-year-old Dominican speaking male at bedside for AHCD & initial psychosocial assessment. Patient denies having an AHCD, and verbally designated his Cora Encarnacion ([phone]) as surrogate medical spokesperson. Patient states he lives with his at [address] [place] [address] with Cora. 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 States he is independent at home with ADL's and states he drives a car. Patient denies any questions/ concerns. States he is bored at the hospital and has been sleeping a lot to make the time go by quicker, and is looking forward to d/c. SW remains available as needed.
--- NOTE | 2018-08-02 14:55 | NUR ---
pt was picked up to phlebotomist medical lab assistant.
[2018-08-02] MEDS ORDERED: LIDOCAINE 1% (MDV) 20 ML INJ ONE (15:06)
[2018-08-02] MEDS ORDERED: IODIXANOL LOCM 100 ML BTL ONE (15:06)
[2018-08-02] MEDS ORDERED: FENTAnyl 50 MCG/ML VIAL ONE (15:06)
[2018-08-02] MEDS ORDERED: MIDAZOLAM 1 MG/ML 2 ML INJ ONE (15:07)
[2018-08-02] MEDS ORDERED: BIVALIRUDIN 250MG /NS 50 ML 50 ML IVPB ONE (15:50)
[2018-08-02] MEDS ORDERED: NITROGLYCERIN (IC) 100 MCG/ML INJ ONE (15:50)
[2018-08-02] MEDS ORDERED: TICAGRELOR 90 MG TABLET ONE (15:50)
[2018-08-02] MEDS ORDERED: IOHEXOL 350MG/ML 50 ML BTL ONE (15:55)
[2018-08-02] MEDS ORDERED: BIVALIRUDIN 250 MG in SOD CHLORIDE 0.9% 500 ML IV SCH (16:30)
--- NOTE | 2018-08-02 16:33 | OPR ---
Date/Time of Note Date/Time of Note DATE: 08/02/18 TIME: 16:26 Operative Report Procedure Date: Aug 02, 2018 Preoperative Diagnosis NSTEMI Postoperative Diagnosis NH Operation/Procedure Performed PCI RCA Surgeon see signature line Cast Iron Drain Pipe Layer Jaquan Anesthesia Type: moderate sedation Estimated Blood Loss: minimal Transfusion none Specimen none Grafts/Implants none Complications none Procedure Description Sales Agent Food Vending Service: Romeo Jeronimo MD Indication: NSTEMI Procure performed: #1 left heart catheterization and selective right and left coronary angiogram #2 Right femoral angiogram and closure using a Perclose device 3. Successful PTCA and stenting of proximal right coronary artery using a 3 x 28 mm Synergy drug-eluting stent, and PCI of the mid right coronary artery using a 3 x 16 mm Synergy drug-eluting stent 4. Moderate sedation for more than 60 minutes Findings: 1. Left main: is normal and trifurcates to LAD & LCX. RI 2. LAD: has no significant stenosis 3. Left circumflex artery: is nondominant. it has 50-60 % stenosis at the origin of obtuse marginal 1 4. Ramus intermediate is a large vessel with no significant stenosis 5. RCA: is dominant. it has 80% ulcerated plaque at the proximal to mid area and another 80-90 % stenosis at mid to distal area. After successful PCI of these lesions there was no significant residual stenosis left 5. LV: 128/12 Aortic pressure by pull back:118/69 Procedure in detail: Written informed consent with obtained after risks benefits and alternatives discussed with the patient in detail. risks including but not limited to risk of infection vascular complications, bleeding complications, NH stroke arrhythmia renal failure at even were discussed with the patient in detail. Patient was brought into the cardiac farm labor contractor and placed in supine position. Right and left groin area was prepped and draped in regular sterile fashion and then he was in anesthetized using 1% lidocaine. Right femoral artery was cannulated and using modified seldinger technique a 6 Pashto sheath was placed in the femoral artery. Femoral angiogram was performed JL4 guiding catheter was advanced to engage the left main coronary artery angiographic view was obtained. JR4 catheter was advanced and engaged into the right coronary artery and angiographic view was obtained. Then a pigtail was advanced to engage the left ventricle hemodynamics as recorded by pullback aortic pressure was measured. At this time we decided to perform PCI of the right coronary artery. A JR4 guiding head was advanced to engage the right coronary artery. The MW wire was used and advanced across the lesion and placed distal to the lesion. I used a 2.5 x 12 mm balloon which was placed across the lesion and predilated the vessel. Then I used a 3 x 16 mm Synergy drug-eluting stent which was placed across the mid to distal lesion and deployed at 12 August. Then I used a 3 x 28 mm Synergy drug-eluting stent which was placed across the prox/ mid lesion and deployed at 16 August Finally a 3.25 x 12 mm noncompliant balloon was used and postdilated the stent and up to 18 August. Final angiographic view was obtained which showed NELLA-3 flow no evidence of dissection and no significant residual stenosis at the site of the stent. perclose was successfully deployed. Patient tolerated the procedure well with no complication. Patient was transferred to ICU in stable condition. contrast used: 90 Visipaque Conclusions: Successful PTCA stenting of the right coronary artery from up to 90% stenosis to no significant residual stenosis using a 3 x 28 and 3 x 16 mm Synergy drug-eluting stens Recommendations: Aggressive medical therapy. aspirin indefinitely dual antiplatlet therapy with aspirin and Brilinta ICU care overnight. ROMEO JERONIMO MD [facility] ROMEO JERONIMO MD Aug 02, 2018 16:33
[2018-08-02] MEDS: SOD CHLORIDE 0.9% 1,000 ML IV SCH ×2 (17:00→22:49)
--- NOTE | 2018-08-02 17:08 | NUR ---
Pt is recovered. Dr. Fraire was called to clarify the ICU overnight in postop note per FIDE Maldonado. Order received per Dr. Fraire that patient that patient may return to [address] floor but in a front room near nursing station. Awaiting for an available front room. Patient and family updated on room situation.
--- NOTE | 2018-08-02 17:11 | CONS ---
Consult Date/Type/Reason Admit Date/Time Aug 01, 2018 at 19:08 Initial Consult Date 08/01/18 Requesting Provider: HEATHER BENSON Date/Time of Note DATE: 08/02/18 TIME: 17:06 Subjective Cardiology follow-up progress note Subjective: Patient with no chest pain pressure overnight. No palpitation. Status post PCI of right coronary artery. Objective: General: no acute distress HEENT: NC/AT. pupils are equal. round. NECK: NO JVD. no stridor. CV: RRR. systolic murmur; no gallop or rubs. PULM: no wheezing or rhonchi. GI: SOFT, NT, ND, no rebound or guarding Extremity: trace B/L LE edema. no clubbing. neuro: awake and alert, OX3. Psych: calm and pleasant rectal: deferred : normal Vascular: Right femoral no bleeding or hematoma. Objective Vitals Vital Signs Date Temp Pulse Resp B/P (MAP) Pulse Ox O2 O2 Flow FiO2 Time Delivery Rate 08/02/18 98 12:24 08/02/18 98.8 19 124/70 96 11:24 (88) 08/02/18 Nasal 2.0 07:56 Cannula Intake and Output 08/01/18 08/01/18 08/02/18 1515:00 23:00 07:00 IntakeIntake Total 500 ml BalanceBalance 500 ml Results/Medications Result Diagram: 08/02/1838 08/02/1838 Results 24 hrs Laboratory Tests Test 08/01/18 17:41 08/02/18 00:52 08/02/18 06:38 White Blood Count 11.0 H 8.1 # Red Blood Count 4.66 L 4.01 L Hemoglobin 14.8 12.9 L Hematocrit 42.8 37.9 L Mean Corpuscular Volume 91.8 94.5 Mean Corpuscular Hemoglobin 31.8 32.2 Mean Corpuscular Hemoglobin Concent 34.6 34.0 Red Cell Distribution Width 12.2 12.4 Platelet Count 206 163 # Mean Platelet Volume 9.4 9.5 Immature Granulocytes % 0.800 H 0.700 H Neutrophils % 73.9 65.6 Lymphocytes % 18.8 24.9 Monocytes % 5.9 7.6 Eosinophils % 0.1 0.6 Basophils % 0.5 0.6 Nucleated Red Blood Cells % 0.0 0.0 Immature Granulocytes # 0.090 H 0.060 H Neutrophils # 8.2 H 5.3 Lymphocytes # 2.1 2.0 Monocytes # 0.7 0.6 Eosinophils # 0.0 0.1 Basophils # 0.1 0.1 Nucleated Red Blood Cells # 0.0 0.0 Sodium Level 141 140 Potassium Level 4.1 4.1 Chloride Level 103 101 Carbon Dioxide Level 22 26 Anion Gap 16 H 13 Blood Urea Nitrogen 8 10 Creatinine 0.69 0.73 Est Glomerular Filtrat Rate mL/min > 60 > 60 Glucose Level 92 104 Calcium Level 10.1 9.1 Creatine Kinase 89 77 64 Creatinine Kinase MB (Mass) 1.57 1.64 1.22 Troponin I 0.658 *H 0.512 *H 0.217 *H Free Thyroxine 1.08 Creatine Kinase Index 2.1 1.9 Hemoglobin A1c 5.3 Phosphorus Level 5.4 H Magnesium Level 1.7 Triglycerides Level 135 Cholesterol Level 176 LDL Cholesterol, Calculated 91 HDL Cholesterol 58 Cholesterol/HDL Ratio 3.0 Thyroid Stimulating Hormone (TSH) 1.820 Home Meds No Active Prescriptions or Reported Meds Medications Current Medications IV Flush (NS 3 ml) 3 ml PER PROTOCOL IV ; Start 08/01/18 at 19:30 Ondansetron HCl (Zofran Inj) 4 mg Q6H PRN IV NAUSEA/VOMITING; Start 08/01/18 at 19:30 Acetaminophen (Tylenol Tab) 650 mg Q6H PRN PO .PAIN 1-3 OR TEMP Last ad ministered on 08/02/18at 13:40; Admin Dose 650 MG; Start 08/01/18 at 19:30 Acetaminophen/ Hydrocodone Bitart ([place] (5/325)) 1 tab Q6H PRN PO .MOD PAIN 4- 6; Start 08/01/18 at 19:30 Morphine Sulfate (morphine) 2 mg Q4H PRN IV .SEVERE PAIN 7-10; Start 08/01/18 at 19:30 Docusate Sodium (Colace) 100 mg Q12H PRN PO .CONSTIPATION; Start 08/01/18 at 19:30 Magnesium Hydroxide (Milk Of Mag) 30 ml DAILY PRN PO .CONSTIPATION; Start 08/01/18 at 19:30 Albuterol/ Ipratropium (Duoneb) 3 ml Q4H RESP THERAPY PRN HHN SHORTNESS OF BREATH; Start 08/01/18 at 19:30 Hydralazine HCl (Apresoline) 10 mg Q6H PRN IV ELEVATED BLOOD PRESSURE; Start 08/01/18 at 19:30 Nitroglycerin (Nitroglycerin (Sl Tab) 0.4 Mg) 1 tab Q5M PRN SL ANGINA; Start 08/01/18 at 19:30 Aspirin (Ecotrin) 325 mg DAILY PO Last administered on 08/02/18at 08:53; Admin Dose 325 MG; Start 08/02/18 at 09:00 Atorvastatin Calcium (Lipitor) 80 mg HS PO Last administered on 08/02/18at 00:50; Admin Dose 80 MG; Start 08/01/18 at 21:00 Metoprolol Tartrate (Lopressor) 25 mg Q6 PO Last administered on 08/02/18at 12:12; Admin Dose 25 MG; Start 08/01/18 at 21:00 Isosorbide Dinitrate (Isordil) 10 mg TID PO Last administered on 08/02/18at 12:11; Admin Dose 10 MG; Start 08/01/18 at 21:00 Nicotine (Nicoderm 21 Mg/ 24hr) 1 patch DAILY TRANSDERM ; Start 08/02/18 at 09:00 Multivitamins 10 ml/Folic Acid 1 mg/Sodium Chloride 1,010.2 ml @ 125 mls/ hr DAILY@09 IVPB Last administered on 08/02/18at 08:52; Admin Dose 125 MLS/HR; Start 08/02/18 at 09:00; Stop 08/04/18 at 23:00 Lorazepam (Ativan) 2 mg Q1H PRN IV Alcohol withdrawal; Start 08/02/18 at 06:00 Chlordiazepoxide (Librium) 75 mg TID PO ; Start 08/02/18 at 06:00 Miscellaneous Information (* Miscellaneous Pharmacy Order) Hold all Metformin ... ONCE XX ; Start 08/02/18 at 16:30; Stop 08/04/18 at 16:29 Aspirin (Halfprin) 81 mg DAILY PO ; Start 08/03/18 at 09:00 Ticagrelor (Brilinta) 90 mg BID PO ; Start 08/02/18 at 21:00 Bivalirudin 250 mg/Sodium Chloride 500 ml @ 34.64 mls/ hr NOW IV ; Start 08/02/18 at 16:30; Stop 08/02/18 at 17:29 Sodium Chloride 1,000 ml @ 75 mls/hr [id number] IV ; Start 08/02/18 at 16:23; Stop 08/03/18 at 05:42 Assessment/Plan Hospital Course (Demo Recall) 1. NSTEMI 2. HTN 3. abnormal trop due to above 4. r/o dyslipidemia 5. SMOKER 6. COPD 7 SINUS TACHY REC: Patient has already been started on aspirin. Brilinta as well We will switch metoprolol to carvedilol Statin was already initiated DC planning for tomorrow if remains stable Importance of compliant with the medication including aspirin and Brilinta discussed with the patient extensively risk of subacute thrombosis on [place] and if patient does not take his medication regularly was also explained emphasized to him Thank you for his referral. We will continue to follow along with you ROMEO LION MD [facility] ROMEO LION MD Aug 02, 2018 17:11
--- NOTE | 2018-08-02 18:54 | NUR ---
EOSS S/P HEART CATH, PT WILL GO TO [address]. DR[address] LION WANTS HIM AT THE FRONT ROOM.527 STILL NOT READY. WILL ENDORSE TO NEXT SHIFT
--- NOTE | 2018-08-02 21:18 | NUR ---
PACU Time: 9392 to 1441
--- NOTE | 2018-08-02 21:31 | NUR ---
Patient Transferred from PACU to room 527 Patient S/P cardiac catheterization via femoral access site, stent X 2 to RCA. Patient is A&O X 4 no lethargy or ALOC noted. VSS: T 98.6F, HR 78, B/P 135/96, 02 98% on RA. Patient is sinus rhythm on the monitor in the 70's. Patient denies chest pain and access site pain. Dorsalis pedis and tibial pulses palpable, cap refill < 2 sec; no sensation, numbness or neurovascular deficits noted. No S/S of hematoma at right femoral puncture site; no redness, swelling, warmth, bleeding, or pain. No ecchysmosis at puncture area. Patient remains in supine position; sheath removed at 16:14, patient to remain supine until 22:14, per MD orders. Will continue to monitor and assess.
[2018-08-02] MEDS: TICAGRELOR 90 MG TABLET PO SCH (22:19)
[2018-08-03] VITALS (8 sets, daily range): BP systolic 123–138; BP diastolic 72–79; PULSE 77–95; RESP 13–17
--- NOTE | 2018-08-03 06:11 | NUR ---
EOSS: Pt A&O x 4. VSS. Sinus rhythm on the monitor. Patient is S/P left heart catheterization via right femoral w/ 2 stents placed in RCA. Patient has not had any episodes of chest pain. Pulses palpable, no numbness. No current s/s of distress, resting in bed comfortably. Fall precautions maintained. Hourly rounding performed. Call light within reach; instructed pt to call for assistance as needed. Pt clean and dry; all needs and concerns attended to. Will endorse pt to AM RN for continuity of care.
--- NOTE | 2018-08-03 08:06 | RADRPT ---
Echocardiogram Report Patient Name: KENNETH ACOSTAPatient ID: [id number] : 1975 (42y 9m)Study Date: 08/02/2018 9:08:25 AM Gender: MAccession #: [id number] Tech: Location: Ref.Physician: ZI JERONIMO Height(Cm): BSA: Weight(Kg): Quality: AdequateAccount #: Procedures: Echocardiographic Report: Transthoracic echocardiogram with complete 2D, M-Mode, and doppler examination. Indications: NM. Measurements: 2D/M Mode Doppler Measurement Value Normal Range Measurement Value Normal Range LVIDd 2D 4.4 [ 4.2 - 5.8 ] cm AV Peak Tim 1.0 [ 100.0 - 170.0 ] cm/sec LVIDs 2D 2.7 [ 2.5 - 4.0 ] cm AV Peak PG 4.0 [ 2.0 - 9.0 ] mmHg LVPWd 2D 1.1 [ 0.6 - 1.0 ] cm LVOT Peak Tim 0.8 [ 70.0 - 110.0 ] cm/sec IVSd 2D 1.4 [ 0.6 - 1.0 ] cm LVOT Peak PG 3.0 [ 2.0 - 6.0 ] mmHg IVS/LVPW 2D 1.2 ratio MV E Peak Tim 0.7 [ 60.0 - 130.0 ] cm/sec AoR Diam 2D 3.1 [ 2.6 - 3.4 ] cm MV A Peak Tim 0.9 [ 100.0 - 120.0 ] cm/sec LA/Ao 2D 1 ratio MV E/A 0.8 [ 0.8 - 1.5 ] ratio MV Decel Time 173 [ 104 - 258 ] msec Lat E` Tim 0.1 [ 10.0 - 15.0 ] cm/sec Med E` Tim 0.1 cm/sec MV E/A 0.8 [ 0.8 - 1.5 ] ratio RA Pressure 3.0 mmHg Findings: Left Ventricle: Normal left ventricular systolic function. Normal left ventricular cavity size. Mild asymmetric septal hypertrophy. Ejection fraction is visually estimated at 55 %. Tissue Doppler/Mitral Doppler indices are consistent with impaired relaxation (Stage I diastolic dysfunction). Right Ventricle: Normal right ventricular size. Normal right ventricular systolic function. Left Atrium: The left atrium is normal in size. Right Atrium: The right atrium is normal in size. Mitral Valve: Mild mitral leaflet calcification. Mild mitral annular calcification. Trace mitral regurgitation. Aortic Valve: No significant aortic stenosis or insufficiency. Aortic cusps appear mildly calcified. No aortic regurgitation. Tricuspid Valve: Normal appearance of the tricuspid valve. Unable to obtain RVSP due to minimal presence of tricuspid regurgitation. Pulmonic Valve: Pulmonic valve not well visualized. There is trace pulmonic regurgitation. Pericardium: Normal pericardium with no significant pericardial effusion. Aorta: Normal aortic root. IVC: Normal size and normal respiratory collapse consistent with normal right atrial pressure. Conclusions: Normal left ventricular systolic function. Normal left ventricular cavity size. Mild asymmetric septal hypertrophy. Ejection fraction is visually estimated at 55 %. Tissue Doppler/Mitral Doppler indices are consistent with impaired relaxation (Stage I diastolic dysfunction). No significant aortic stenosis or insufficiency. Aortic cusps appear mildly calcified. No aortic regurgitation. Normal appearance of the tricuspid valve. Unable to obtain RVSP due to minimal presence of tricuspid regurgitation. Electronically Signed By: Zi Jeronimo 2018-08-02 14:42:30 PST
--- NOTE | 2018-08-03 08:14 | CONS ---
Consult Date/Type/Reason Admit Date/Time Aug 01, 2018 at 19:08 Initial Consult Date 08/01/18 Type of Consultation: cv Requesting Provider: HEATHER BENSON Date/Time of Note DATE: 08/03/18 TIME: 08:12 Subjective Interventional cardiology follow-up progress note Subjective: Patient with no chest pain pressure overnight. No palpitation. Status post PCI of right coronary artery. Minimal groin discomfort Objective: General: no acute distress HEENT: NC/AT. pupils are equal. round. NECK: NO JVD. no stridor. CV: RRR. systolic murmur; no gallop or rubs. PULM: no wheezing or rhonchi. GI: SOFT, NT, ND, no rebound or guarding Extremity: trace B/L LE edema. no clubbing. neuro: awake and alert, OX3. Psych: calm and pleasant rectal: deferred : normal Vascular: Right femoral no bleeding or hematoma. No bruit Objective Vitals Vital Signs Date Temp Pulse Resp B/P (MAP) Pulse Ox O2 O2 Flow FiO2 Time Delivery Rate 08/03/18 97.7 77 17 123/79 98 07:07 (94) 08/03/18 2.0 05:37 08/03/18 Room Air 03:54 Intake and Output 08/02/18 08/02/18 08/03/18 1515:00 23:00 07:00 IntakeIntake Total 225 ml 1000 ml OutputOutput Total 900 ml BalanceBalance 225 ml 100 ml Results/Medications Result Diagram: 08/03/18 0531 08/03/18 0531 Results 24 hrs Laboratory Tests Test 08/03/18 05:31 White Blood Count 5.6 # Red Blood Count 3.84 L Hemoglobin 12.2 L Hematocrit 36.3 L Mean Corpuscular Volume 94.5 Mean Corpuscular Hemoglobin 31.8 Mean Corpuscular Hemoglobin Concent 33.6 Red Cell Distribution Width 12.5 Platelet Count 146 Mean Platelet Volume 9.6 Immature Granulocytes % 1.100 H Neutrophils % 61.8 Lymphocytes % 26.9 Monocytes % 8.6 Eosinophils % 0.9 Basophils % 0.7 Nucleated Red Blood Cells % 0.0 Immature Granulocytes # 0.060 H Neutrophils # 3.4 Lymphocytes # 1.5 Monocytes # 0.5 Eosinophils # 0.1 Basophils # 0.0 Nucleated Red Blood Cells # 0.0 Sodium Level 139 Potassium Level 3.8 Chloride Level 108 Carbon Dioxide Level 22 Anion Gap 9 Blood Urea Nitrogen 14 Creatinine 0.73 Est Glomerular Filtrat Rate mL/min > 60 Glucose Level 187 Calcium Level 8.7 Total Bilirubin 0.2 Direct Bilirubin 0.00 Indirect Bilirubin 0.2 Aspartate Amino Transf (AST/SGOT) 22 Alanine Aminotransferase (ALT/SGPT) 23 Alkaline Phosphatase 65 Creatine Kinase 42 Creatine Kinase Index 1.0 Creatinine Kinase MB (Mass) 0.40 Troponin I 0.078 Total Protein 5.8 L Albumin 3.5 Globulin 2.30 Albumin/Globulin Ratio 1.52 Home Meds No Active Prescriptions or Reported Meds Medications Current Medications IV Flush (NS 3 ml) 3 ml PER PROTOCOL IV ; Start 08/01/18 at 19:30 Ondansetron HCl (Zofran Inj) 4 mg Q6H PRN IV NAUSEA/VOMITING; Start 08/01/18 at 19:30 Acetaminophen (Tylenol Tab) 650 mg Q6H PRN PO .PAIN 1-3 OR TEMP Last administered on 08/02/18at 13:40; Admin Dose 650 MG; Start 08/01/18 at 19:30 Acetaminophen/ Hydrocodone Bitart (Capitan (5/325)) 1 tab Q6H PRN PO .MOD PAIN 4- 6; Start 08/01/18 at 19:30 Morphine Sulfate (morphine) 2 mg Q4H PRN IV .SEVERE PAIN 7-10; Start 08/01/18 at 19:30 Docusate Sodium (Colace) 100 mg Q12H PRN PO .CONSTIPATION; Start 08/01/18 at 19:30 Magnesium Hydroxide (Milk Of Mag) 30 ml DAILY PRN PO .CONSTIPATION; Start 08/01/18 at 19:30 Albuterol/ Ipratropium (Duoneb) 3 ml Q4H RESP THERAPY PRN HHN SHORTNESS OF BREATH; Start 08/01/18 at 19:30 Hydralazine HCl (Apresoline) 10 mg Q6H PRN IV ELEVATED BLOOD PRESSURE; Start 08/01/18 at 19:30 Nitroglycerin (Nitroglycerin (Sl Tab) 0.4 Mg) 1 tab Q5M PRN SL ANGINA; Start 08/01/18 at 19:30 Atorvastatin Calcium (Lipitor) 80 mg HS PO Last administered on 08/02/18at 21:53; Admin Dose 80 MG; Start 08/01/18 at 21:00 Isosorbide Dinitrate (Isordil) 10 mg TID PO Last administered on 08/02/18at 21:56; Admin Dose 10 MG; Start 08/01/18 at 21:00 Nicotine (Nicoderm 21 Mg/ 24hr) 1 patch DAILY TRANSDERM ; Start 08/02/18 at 09:00 Multivitamins 10 ml/Folic Acid 1 mg/Sodium Chloride 1,010.2 ml @ 125 mls/ hr DAILY@09 IVPB Last administered on 08/02/18at 08:52; Admin Dose 125 MLS/HR; Start 08/02/18 at 09:00; Stop 08/04/18 at 23:00 Lorazepam (Ativan) 2 mg Q1H PRN IV Alcohol withdrawal; Start 08/02/18 at 06:00 Chlordiazepoxide (Librium) 75 mg TID PO ; Start 08/02/18 at 06:00 Miscellaneous Information (* Miscellaneous Pharmacy Order) Hold all Metformin ... ONCE XX ; Start 08/02/18 at 16:30; Stop 08/04/18 at 16:29 Aspirin (Halfprin) 81 mg DAILY PO ; Start 08/03/18 at 09:00 Ticagrelor (Brilinta) 90 mg BID PO Last administered on 08/02/18at 22:19; Admin Dose 90 MG; Start 08/02/18 at 21:00 Carvedilol (Coreg) 6.25 mg BID PO Last administered on 08/02/18at 21:54; Admin Dose 6.25 MG; Start 08/02/18 at 21:00 Assessment/Plan Hospital Course (Demo Recall) 1. NSTEMI 2. HTN 3. abnormal trop due to above 4. r/o dyslipidemia 5. SMOKER 6. COPD 7 SINUS TACHY: Improved on beta-blockers REC: Continue current cardiac care including aspirin and Brilinta on carvedilol and statin Importance of compliant with the medication including aspirin and Brilinta discussed with the patient extensively risk of subacute thrombosis on DC and if patient does not take his medication regularly was also explained emphasized to him DC planning today once patient is able to filling the prescription for Brilinta. I have given the prescription to the patient yesterday along with a coupon for it. Patient was advised to follow-up with me within the next 1 or 2 weeks Thank you for his referral. We will continue to follow along with you ROMEO LION MD [facility] ROMEO LION MD Aug 03, 2018 08:14
[2018-08-03] MEDS: MULTIVITAMINS 10 ML, FOLIC ACID 1 MG in SOD CHLORIDE 0.9% 1,000 ML IVPB SCH (08:15)
[2018-08-03] MEDS: NICOTINE (21 MG/24 HR) PATCH TRANSDERM SCH (08:18)
[2018-08-03] MEDS: CHLORDIAZEPOXIDE 25 MG CAP PO SCH ×2 (08:18→13:00)
[2018-08-03] MEDS: ISOSORBIDE DINITRATE 10 MG TAB PO SCH ×2 (08:18→13:11)
[2018-08-03] MEDS: TICAGRELOR 90 MG TABLET PO SCH (08:23)
[2018-08-03] MEDS ORDERED: ASPIRIN (EC) 81 MG TAB PO SCH (09:00)
--- NOTE | 2018-08-03 11:14 | PDOCDIS ---
Discharge Instructions CONDITION [id number] Patient Condition: [id number] Stable HOME CARE INSTRUCTIONS: [id number] Diet Instructions: [id number] Low Fat /Cholesterol ACTIVITY: [id number] Activity Restrictions: [id number] Slowly Increase Activity Rest between Activity Avoid heavy lifting FOLLOW UP/APPOINTMENTS Follow-up Plan Please take your medications as prescribed, see your doctor in the clinic in the next 1 week. HEATHER BENSON Aug 03, 2018 11:14
[2018-08-03] MEDS ORDERED: TICA90TA PO (11:17)
[2018-08-03] MEDS ORDERED: CARV6.2579 PO (11:17)
[2018-08-03] MEDS ORDERED: ISOS10TA2 PO (11:17)
[2018-08-03] MEDS ORDERED: ATOR-2 PO (11:17)
[2018-08-03] MEDS ORDERED: NICO-546 TRANSDERM (11:17)
[2018-08-03] MEDS ORDERED: LORA1TAB PO (11:17)
[2018-08-03] MEDS ORDERED: ALBU8.5H8 INH (11:22)
--- NOTE | 2018-08-03 11:22 | DS ---
Date/Time of Note Date/Time of Note DATE: 08/03/18 TIME: 11:18 Discharge Summary Admission/Discharge Info Admit Date/Time Aug 01, 2018 at 19:08 Discharge Date/Time Discharge Diagnosis 1. NSTEMI -seen by cardiology team, found with elevated troponins -status post left heart cath with stenting performed on right coronary artery blockage. 2. Emphysema/COPD, as seen on CTPA: No sign of acute exacerbation 3. Patient with a history of smoking-Counseled on smoking cessation 3. Alcohol abuse: Started on banana bag and Librium this admission, no signs of withdrawal or DTs noted, improving overall. Patient Condition: Stable Procedures A.Date/Time of Note Date/Time of Note DATE: 08/02/18 TIME: 16:26 Operative Report Procedure Date: Aug 02, 2018 Preoperative Diagnosis NSTEMI Postoperative Diagnosis AK Operation/Procedure Performed PCI RCA Findings: 1. Left main: is normal and trifurcates to LAD & LCX. RI 2. LAD: has no significant stenosis 3. Left circumflex artery: is nondominant. it has 50-60 % stenosis at the origin of obtuse marginal 1 4. Ramus intermediate is a large vessel with no significant stenosis 5. RCA: is dominant. it has 80% ulcerated plaque at the proximal to mid area and another 80-90 % stenosis at mid to distal area. After successful PCI of these lesions there was no significant residual stenosis left Procure performed: #1 left heart catheterization and selective right and left coronary angiogram #2 Right femoral angiogram and closure using a Perclose device 3. Successful PTCA and stenting of proximal right coronary artery using a 3 x 28 mm Synergy drug-eluting stent, and PCI of the mid right coronary artery using a 3 x 16 mm Synergy drug-eluting stent 4. Moderate sedation for more than 60 minutes B. 2D echo: Conclusions: Normal left ventricular systolic function. Normal left ventricular cavity size. Mild asymmetric septal hypertrophy. Ejection fraction is visually estimated at 55 %. Tissue Doppler/Mitral Doppler indices are consistent with impaired relaxation (Stage I diastolic dysfunction). No significant aortic stenosis or insufficiency. Aortic cusps appear mildly calcified. No aortic regurgitation. Normal appearance of the tricuspid valve. Unable to obtain RVSP due to minimal presence of tricuspid regurgitation. Hx of Present Illness 42-year-old male with smoking history as well as alcohol abuse who presented to ER complaining of chest pain. Pain started a few hours prior to arrival to the ER while he was sitting. It substernal, radiating upper back and left upper extremity with associated numbness of his left hand. Pain lasted about 30 minutes. Not exertional. Denied associated shortness of breath, nausea/vomiting or diaphoresis. He has a father who had heart disease, does not know at what age. His paternal uncle of heart disease at the age of 36. When he presented to ER, first troponin was elevated at 0.658. EKG without ST-T wave abnormalities. Chest x-ray without acute findings. CTPA shows Emphysema is present with mild bilateral subpleural scarring and bilateral airways wall thickening is seen which could represent airways inflammation which may be chronic. No PE, lung nodule or mass Hospital Course So patient was admitted to telemetry floor. He was found with signs of non-ST elevation AK. He was placed on appropriate cardiac medications for that. He was also thought to have signs of possible alcohol abuse, monitor for DTs and withdrawal, placed on Librium and banana back for that. He was counseled on smoking cessation as well. Over the course of his hospital stay based on the evaluations of the cardiology team, they recommended performing a left heart cath which was performed. Patient had stenting performed blockage of his right coronary artery. He tolerated cardiac medications and the procedure overall well for that. He was able to ambulate, tolerated p.o. diet. Once we confirmed that his family member himself can fill the Brilinta prescription, along with his other cardiac medications that are newly prescribed this admission, before discharge, he will be discharged home today later and in improved condition. He will follow-up cardiology team in the clinic in the next few days. See below for full list of discharge medications. Home Meds Active Scripts Lorazepam* (Lorazepam*) 1 Mg Tablet, 1 MG PO Q6 PRN for CONTROL WITHDRAWAL SYMPTOMS, #10 TAB Prov:RAELIZABETH,HEATHER S. 08/03/18 Isosorbide Dinitrate* (Isordil*) 10 Mg Tablet, 10 MG PO TID, #90 TAB 4 Refills Prov:RAHI,HEATHER S. 08/03/18 Carvedilol* (Carvedilol*) 6.25 Mg Tablet, 6.25 MG PO BID, #60 TAB 4 Refills Prov:RAHI,HEATHER S. 08/03/18 Atorvastatin* (Atorvastatin*) 80 Mg Tablet, 80 MG PO HS, #30 TAB 4 Refills Prov:HEATHER BENSON S. 08/03/18 Nicotine* (Nicotine* Patch) 21 mg/day Patch, 1 PATCH TRANSDERM DAILY, #1 BOTTLE 2 Refills Prov:HEATHER BENSON S. 08/03/18 Ticagrelor* (Brilinta*) 90 Mg Tablet, 90 MG PO BID for 30 Days, TAB Prov:HEATHER BENSON S. 08/03/18 Follow-up Plan Please take your medications as prescribed, see your doctor in the clinic in the next 1 week. Primary Care Provider Not On Staff Doctor Time spent on discharge: > 30 minutes Pending Labs Laboratory Tests Test 08/03/18 05:31 White Blood Count 5.6 10^3/ul (4.8-10.8) Red Blood Count 3.84 10^6/ul (4.70-6.10) Hemoglobin 12.2 g/dl (14.0-18.0) Hematocrit 36.3 % (42.0-52.0) Mean Corpuscular Volume 94.5 fl (82.0-101.0) Mean Corpuscular Hemoglobin 31.8 pg (29.0-33.0) Mean Corpuscular Hemoglobin Concent 33.6 g/dl (32.0-37.0) Red Cell Distribution Width 12.5 % (11.5-14.5) Platelet Count 146 10^3/UL (140-415) Mean Platelet Volume 9.6 fl (7.4-10.4) Immature Granulocytes % 1.100 % (0.001-0.429) Neutrophils % 61.8 % (39.0-77.0) Lymphocytes % 26.9 % (15.0-51.0) Monocytes % 8.6 % (0.0-11.0) Eosinophils % 0.9 % (0.0-7.0) Basophils % 0.7 % (0.0-2.0) Nucleated Red Blood Cells % 0.0 /100WBC (0.0-0.0) Immature Granulocytes # 0.060 10^3/ul (0.0-0.031) Neutrophils # 3.4 10^3/ul (1.6-7.5) Lymphocytes # 1.5 10^3/ul (0.8-2.9) Monocytes # 0.5 10^3/ul (0.3-0.9) Eosinophils # 0.1 10^3/ul (0.0-0.5) Basophils # 0.0 10^3/ul (0.0-0.1) Nucleated Red Blood Cells # 0.0 10^3/ul (0.0-0.0) Sodium Level 139 mmol/L (135-144) Potassium Level 3.8 mmol/L (3.5-5.1) Chloride Level 108 mmol/L (97-110) Carbon Dioxide Level 22 mmol/L (21-31) Anion Gap 9 (5-13) Blood Urea Nitrogen 14 mg/dl (7-20) Creatinine 0.73 mg/dl (0.61-1.24) Est Glomerular Filtrat Rate mL/min > 60 mL/min (>60) Glucose Level 187 mg/dl (70-220) Calcium Level 8.7 mg/dl (8.4-10.2) Total Bilirubin 0.2 mg/dl (0.2-1.3) Direct Bilirubin 0.00 mg/dl (0.00-0.20) Indirect Bilirubin 0.2 mg/dl (0-1.1) Aspartate Amino Transf (AST/SGOT) 22 IU/L (15-46) Alanine Aminotransferase (ALT/SGPT) 23 IU/L (13-69) Alkaline Phosphatase 65 IU/L (42-121) Creatine Kinase 42 IU/L (23-200) Creatine Kinase Index 1.0 Creatinine Kinase MB (Mass) 0.40 ng/ml (0.0-2.4) Troponin I 0.078 ng/ml (0.000-0.120) Total Protein 5.8 g/dl (6.1-8.1) Albumin 3.5 g/dl (3.3-4.9) Globulin 2.30 g/dl (1.3-3.2) Albumin/Globulin Ratio 1.52 HEATHER BENSON Aug 03, 2018 11:22
[2018-08-03] MEDS ORDERED: ASPI-817 PO (11:30)
--- NOTE | 2018-08-03 15:02 | NUR ---
Discharge summary: pt is being discharged to home. Vs stable, denies pain, denies SOB. Pt's brought in filled medications prescriptions from pharmacy as instructed by , most importantlyCorrie. Medications side effects, and frequency discussed with pt and . In addition, discussed with pt and about signs and symptoms of heart attack, when to call 911 and to follow up with primary care physician, hand outs printed from [employer] and included in discharge packet. Pt and verbalized understanding of teachings and packet's content. All belongings packed and with patient, pt wheeled down by assistive personnel. Addendum: 08/03/18 at 1749 by LEELA ADHIKARI RN late entry: signature disclaimer was omitted by accident. Pt and verbalized understanding of discharge instructions.
== END 2018-08-03 15:05 | disposition home or self-care (01) | DRG 247 ==
LOC: E/R 15:07 → TEL 19:08
PROVIDERS: ADMIT Internal Medicine; ATTEND Internal Medicine
PROC: B211YZZ Fluoroscopy of Multiple Coronary Arteries using Other Contrast (ICD-10-PCS; 2018-08-02)
PROC: 027035Z Dilation of Coronary Artery, One Artery with Two Drug-eluting Intraluminal Devices, Percutaneous Approach (ICD-10-PCS; principal; 2018-08-02 15:00)
PROC: 4A023N7 Measurement of Cardiac Sampling and Pressure, Left Heart, Percutaneous Approach (ICD-10-PCS; 2018-08-02 15:00)
DX: I21.4 Non-ST elevation (NSTEMI) myocardial infarction (principal); J43.9 Emphysema, unspecified; I25.10 Atherosclerotic heart disease of native coronary artery without angina pectoris; F10.10 Alcohol abuse, uncomplicated; I10 Essential (primary) hypertension; F17.200 Nicotine dependence, unspecified, uncomplicated; R00.0 Tachycardia, unspecified
CPT/HCPCS: 36415; 71045; 71275; 80048; 80053; 80061; 82550; 82553; 83036; 83735; 84100; 84439; 84443; 84484; 85025; 93005; 93306; 93458; 96360; C1725; C1760; C1887; C1894; C9600; J0583; J1644; J2250; J3010; J7030; J7042; Q9967